=== PATIENT | female | born 1950 | race Caucasian/White ===

== ENCOUNTER → 2016-06-23 | Outpatient (CLI) | payer BC | LOC: KOH-I 12:45 | DX: J06.9 Acute upper respiratory infection, unspecified (principal); R91.8 Other nonspecific abnormal finding of lung field | CPT/HCPCS: 71020 ==

== ENCOUNTER → 2016-07-06 | Outpatient (CLI) | payer BC | LOC: CT 15:18 | DX: R05 Cough (principal) | CPT/HCPCS: 71250 ==

== ENCOUNTER → 2016-09-06 | Outpatient (CLI) | payer BC | LOC: US 11:30 | DX: E04.9 Nontoxic goiter, unspecified (principal) | CPT/HCPCS: 76536 ==

== ENCOUNTER → 2020-04-02 | Outpatient (CLI) | payer MEDICARE, OTHER ==
[~2020-04-02] MED LIST: ELIQUIS 2.5 MG2.5 MG PO; FLONASE 0.05% N16 GM; FLUZONE QU60 MCG/018 IM; GINGER ROOT550 MG PO; GREEN DRINK PO; KENALOG CREAM 015 GM TOP; MELOXICAM7.5 MG PO; NORCO 5-325 TA1 EACH PO; OCUVITE ADULT1 EAC1 PO; OSCAL PO; TURMERIC PO; TYLENOL EXTRA500 MG PO
== END ==
LOC: EXRD 11:05
DX: E04.2 Nontoxic multinodular goiter (principal)
CPT/HCPCS: 76536

== ENCOUNTER → 2020-07-16 | Outpatient (CLI) | payer MEDICARE, OTHER | LOC: NM 09:00 | DX: R06.02 Shortness of breath (principal); R94.31 Abnormal electrocardiogram [ECG] [EKG]; I20.8 Other forms of angina pectoris | CPT/HCPCS: ECHO; 78452; 93017; 93306; A9502 ==

== ENCOUNTER → 2021-04-05 | Outpatient (CLI) | payer MEDICARE, OTHER | LOC: KOH-I 11:33 | DX: J06.9 Acute upper respiratory infection, unspecified (principal) | CPT/HCPCS: 71046 ==

== ENCOUNTER → 2021-08-19 | Outpatient (CLI) | payer MEDICARE, OTHER ==
[~2021-08-19] MED LIST changes: +GINGER ROOT PO
[2021-08-19 11:03] LABS: HEMOGLOBIN 13.8 gm/dl (12.3-15.3); RED BLOOD COUNT 4.42 M/UL (4.00-5.10); WHITE BLOOD COUNT 8.3 K/UL (4.5-11.0)
== END ==
LOC: OPSV2 10:00
PROVIDERS: Obstetrics & Gynecology
DX: Z01.818 Encounter for other preprocedural examination (principal); N81.10 Cystocele, unspecified
CPT/HCPCS: 36415; 71046; 81001; 85025; 93005

== ENCOUNTER → 2021-08-30 | Day surgery (SDC) | payer MEDICARE, OTHER ==
[~2021-08-30] MED LIST changes: +DOCUSATE SODIU250 MG PO; +HYDROCODONE-AC1 EACH PO; +IBUPROFEN600 MG PO; +MULTI-VITAMIN1 EACH PO; +VITAMIN D325 MCG PO
== END | disposition home or self-care (01) ==
LOC: OR 05:27 → EDSTATUS 07:30 → OR 07:30
DX: N81.10 Cystocele, unspecified (principal); D25.1 Intramural leiomyoma of uterus; N72 Inflammatory disease of cervix uteri; R39.14 Feeling of incomplete bladder emptying; E11.9 Type 2 diabetes mellitus without complications; Z79.899 Other long term (current) drug therapy
CPT/HCPCS: C1769; J0690; J1885; J2405; J2550; J7050; J7120